=== PATIENT | male | born 1970 | race African-American/Black ===

== ENCOUNTER 2016-11-02 07:50 | Emergency (ER) | payer OTHER ==
[~2016-11-02] VITALS: Ht 182.9 cm; Wt 111.8 kg
[2016-11-02 07:54] VITALS: TEMP 97.9
[2016-11-02] MEDS ORDERED: ZESTRIL 10MG10 MG PO (09:29)
[2016-11-02] MEDS ORDERED: PREDNISONE20 MG PO (09:29)
[2016-11-02] MEDS ORDERED: ZITHROMAX 250M250 MG PO (09:29)
[2016-11-02] MEDS ORDERED: NORCO 325 MG-51 TAB PO (09:29)
[2016-11-02 09:58] VITALS: BP 130/111; PULSE 102
== END 2016-11-02 09:58 | disposition home or self-care (01) ==
LOC: COL.ER 07:50
DX: J20.9 Acute bronchitis, unspecified (principal); I10 Essential (primary) hypertension; T46.4X6A Underdosing of angiotensin-converting-enzyme inhibitors, initial encounter; F17.210 Nicotine dependence, cigarettes, uncomplicated; R07.89 Other chest pain
CPT/HCPCS: J7512

== ENCOUNTER 2019-02-02 10:00 | Emergency (ER) | payer OTHER ==
[~2019-02-02] VITALS: Ht 182.9 cm; Wt 121.8 kg
[~2019-02-02 10:00] MED LIST: NORCO 325 MG-51 TAB PO; PREDNISONE20 MG PO; ZESTRIL 10MG10 MG PO; ZITHROMAX 250M250 MG PO
[2019-02-02 10:04] VITALS: TEMP 97.8
[2019-02-02 11:25] VITALS: BP 160/102
[2019-02-02] MEDS ORDERED: ASPIRIN E.C. 8181 MG PO (11:28)
[2019-02-02] MEDS ORDERED: PRINIVIL10 MG PO (11:28)
[2019-02-02] MEDS ORDERED: PREDNISONE20 MG PO (11:54)
[2019-02-02] MEDS ORDERED: AMOXICILLIN 8751 TAB PO (11:54)
[2019-02-02 12:25] VITALS: PULSE 79
== END 2019-02-02 12:25 | disposition home or self-care (01) ==
LOC: COL.ER 10:00
DX: J06.9 Acute upper respiratory infection, unspecified (principal); H66.91 Otitis media, unspecified, right ear; I10 Essential (primary) hypertension; F12.90 Cannabis use, unspecified, uncomplicated; J45.909 Unspecified asthma, uncomplicated; Z87.891 Personal history of nicotine dependence; Z79.82 Long term (current) use of aspirin